=== PATIENT | male | born 1955 | race Caucasian/White ===

== ENCOUNTER → 2018-10-31 | Outpatient (CLI) | payer BC ==
[~2018-10-31] MED LIST: IOPAMIDOL 370 MG/ML 200 ML INFUS..BTL INJ ONE; SODIUM CHLORIDE 0.9% 50ML 50 ML ONE
[2018-10-31 14:51] LABS: BLOOD UREA NITROGEN 15 mg/dL (7-26); BUN/CREATININE RATIO 16 (6-25); CREATININE, SERUM 0.95 mg/dL (0.72-1.25); EST GLOMERULAR FILTRATION RATE > 60 ML/MIN (60-)
--- NOTE | 2018-10-31 18:04 | Diagnostic Imaging Report ---
EXAMINATION: CT of the abdomen and pelvis with contrast. TECHNIQUE: Spiral CT images of the abdomen and pelvis were performed from the lung bases to the lesser trochanters after the intravenous administration of 100 cc of Isovue 370 and the oral administration of dilute Gastrografin. Coronal and sagittal reformatted images were obtained. COMPARISON: None. CLINICAL HISTORY:Left lower quadrant abdominal pain, lower abdominal cramps, suspect diverticulitis DISCUSSION: ABDOMEN/PELVIS: LOWER THORAX:9 mm calcified granuloma in the right lower lobe. Left lower lobe dependent atelectasis. HEPATOBILIARY: Diffusely decreased attenuation of the hepatic parenchyma compared to the spleen, consistent with steatosis. Normal contour and size. No focal lesions. No intra or extrahepatic biliary ductal dilation. GALLBLADDER: Gallbladder is hydropic, measuring 11.2 x 4.2 cm. No radiopaque stones or sludge. No wall thickening. SPLEEN: No splenomegaly. PANCREAS: No focal masses or ductal dilatation. ADRENALS: No nodules. KIDNEYS/URETERS: No hydronephrosis, stones, or solid mass lesions. 2.5 cm fluid density simple cyst in the left inferior pole (series 2, image 32). 1.2 cm fluid density simple cyst in the posterior interpolar left kidney (series 2, image 23). PELVIC ORGANS/BLADDER: Bladder is unremarkable. Prostate is enlarged, measuring approximately 3.8 x 4.4 x 5.1 cm (estimated volume 44 mL). PERITONEUM/RETROPERITONEUM: No free air or fluid. LYMPH NODES: No intra-abdominal, retroperitoneal, pelvic or inguinal lymphadenopathy. VESSELS: The celiac trunk,superior and inferior mesenteric and bilateral renal arteries are patent The portal, superior mesenteric and splenic veins are patent. Atherosclerotic calcification of the distal abdominal aorta and proximal vessels. GI TRACT: No bowel dilation or evidence of obstruction. No pericolonic inflammatory changes. No wall thickening. Minimal diverticulosis of the proximal sigmoid colon without diverticulitis. BONES AND SOFT TISSUE: No aggressive lytic lesions. Multilevel degenerative disc changes in the lower thoracic and lumbosacral spine. Soft tissues are unremarkable. Specifically, no soft tissue masses are noted in the right upper quadrant. Fat-containing umbilical hernia, with neck measuring approximately 3.1 x 2.8 cm, with protrusion of a 2 cm segment of the small bowel (series 2, image 40). No wall thickening, dilation or associated free fluid. IMPRESSION: 1. No acute abdominopelvic abnormalities. Minimal proximal sigmoid diverticulosis, without CT evidence of diverticulitis. 2. Hydropic gallbladder, however, no radiopaque stones or sludge or wall thickening is noted. No CT evidence of cholecystitis. 3. Diffuse hepatic steatosis. 4. Fat and bowel containing umbilical hernia, without evidence of strangulation. 5. Findings discussed with Mackenzie Joseph PA-C October 31, 2018 at 18 00 hours Signed by: Dr. Wyatt Carrillo M.D. on 10/31/2018 6:01 PM
== END ==
LOC: CT 13:54
PROVIDERS: ATTEND Family Medicine
DX: R10.32 Left lower quadrant pain (principal); R19.7 Diarrhea, unspecified; D72.829 Elevated white blood cell count, unspecified
CPT/HCPCS: 36415; 74177; 82565; 84520; Q9967

== ENCOUNTER → 2019-03-15 | Day surgery (SDC) | payer BC ==
[2019-03-13 14:58] LABS: BASOPHILS # (AUTO) 0.1 (0.0-0.1); BASOPHILS % 0.4 % (0.0-1.0); EOSINOPHILS # (AUTO) 0.4 (0.0-0.4); EOSINOPHILS % 3.6 % (0.0-6.0); HEMATOCRIT 44.8 % (38.2-49.6); HEMOGLOBIN 15.1 g/dL (14.0-18.0); LYMPHOCYTES # (AUTO) 3.8 (1.0-3.2); MEAN CORPUSCULAR HEMOGLOBIN 31.3 pg (28-32); MEAN CORPUSCULAR HGB CONC 33.7 g/dL (31-35); MEAN CORPUSCULAR VOLUME 92.8 fL (81-99); MONOCYTES # (AUTO) 0.8 (0.2-0.8); MONOCYTES % 6.9 % (4.4-11.3); NEUTROPHILS # (AUTO) 6.4 (2.1-6.9); NEUTROPHILS % 55.8 % (38.7-80.0); PLATELET COUNT 292 x10e3/uL (140-360); RED BLOOD COUNT 4.83 x10e6/uL (4.3-5.7); RED CELL DISTRIBUTION WIDTH 13.2 % (11.7-14.4)
--- NOTE | 2019-03-13 15:20 | Diagnostic Imaging Report ---
EXAMINATION: CHEST 2 VIEWS INDICATION: Pre-operative COMPARISON: CT abdomen and pelvis of 10/31/2018 FINDINGS: TUBES and LINES: None. LUNGS: The lungs are well-inflated. There is patchy opacity at the right mid to lower lung zone and at the left lung base. PLEURA: No pleural effusion or pneumothorax. HEART AND MEDIASTINUM: The cardiomediastinal silhouette is normal in size and contour. BONES AND SOFT TISSUES: No acute fracture or dislocation. Mild degenerative changes of the visualized spine. UPPER ABDOMEN: No free air under the diaphragm. IMPRESSION: Patchy opacity at the right mid to lower lung zone and to a lesser extent at the left lung base more likely residual subsegmental atelectasis than superimposed aspiration or pneumonia. Signed by: Mary Grace Nair MD on 03/13/2019 3:17 PM
[2019-03-13 15:28] LABS: ANION GAP 11.4 mmol/L (8-16); BLOOD UREA NITROGEN 18 mg/dL (7-26); BUN/CREATININE RATIO 21 (6-25); CALCIUM 9.7 mg/dL (8.4-10.2); CARBON DIOXIDE 28 mmol/L (22-29); CHLORIDE 105 mmol/L (98-107); CREATININE, SERUM 0.85 mg/dL (0.72-1.25); EST GLOMERULAR FILTRATION RATE > 60 ML/MIN (60-); GLUCOSE 103 mg/dL (74-118); POTASSIUM 4.4 mmol/L (3.5-5.1); SODIUM 140 mmol/L (136-145)
[~2019-03-15] MED LIST changes: +AMBIEN10 MG PO; +BUPIVACAINE 0.25% 30ML SDV INJ ONE; +BUPIVACAINE 0.25%/EPI 30ML SDV INJ ONE; +CYMBALTA20 MG PO; +DEXAMETHASONE SOD PHOS INJ 4 MG/ML VIAL ONE; +FENTANYL CITRATE/PF 100MCG/2 ML INJ ONE; +HYDROCODONE/APAP 7.5MG-325MG 1 EA TAB ONE; +HYDROMORPHONE 2MG/ML 2 MG/ML ML ONE; -IOPAMIDOL 370 MG/ML 200 ML INFUS..BTL INJ ONE; +KETOROLAC TROMETHAMINE 30 MG/ML VIAL ONE; +LIDOCAINE HCL 1% LOCAL INJ 20 ML VIAL ONE; +LORTAB PO; +MICARDIS40 MG PO; +MIDAZOLAM HCL 2 MG/2 ML VIAL ONE; +ONDANSETRON HCL INJ 2MG/ML 2ML 2 MG/ML VIAL ONE; +PROPOFOL IV EMULSION 10 MG/ML 20 ML VIAL ONE; +ROCURONIUM BROMIDE 10 MG/ML 5ML VIAL ONE; +SEVOFLURANE INHAL SOLN 250 ML PEN BTL ONE; +SIMVASTATIN20 MG PO; -SODIUM CHLORIDE 0.9% 50ML 50 ML ONE; +SUCCINYLCHOLINE 200 MG/10 ML SYR ONE
--- OUTSIDE RECORDS SUMMARY | 2019-03-15 06:30 | XMS REPORT ---
Author Author [facility] Address Unknown Phone Unavailable Care Team Providers Care Foreclosure Specialist Name Role Phone Davis DARLING Unavailable Unavailable ELMER LEDESMA Unavailable Unavailable Problems This patient has no known problems. Allergies, Adverse Reactions, Alerts This patient has no known allergies or adverse reactions. Medications This patient has no known medications. Results Test Description Test Time Test Comments Text Results Atomic Results Result Comments CHEST 2 VIEWS 2019-03-13 15:15:00 [place] [address] Patient Name: SHANI BECERRIL MR #: [id number] : 1955 Age/Sex: 63/M Req #: [id number] Adm Physician: Ordered by: RENATO DARLING MD Report #: [id number] Location: OR Room/Bed: Procedure: [id number] DX/CHEST 2 VIEWS Exam Date: 03/13/19 Exam Time: 1450 REPORT STATUS: Signed EXAMINATION: CHEST 2 VIEWS INDICATION: Pre-operative COMPARISON: CT abdomen and pelvis of 10/31/2018 FINDINGS: TUBES and LINES: None. LUNGS: The lungs are well-inflated. There is patchy opacity at the right mid to lower lung zone and at the left lung base. PLEURA: No pleural effusion or pneumothorax. HEART AND MEDIASTINUM: The cardiomediastinal silhouette is normal in size and contour. BONES AND SOFT TISSUES: No acute fracture or dislocation. Mild degenerative changes of the visualized spine. UPPER ABDOMEN: No free air under the diaphragm. IMPRESSION: Patchy opacity at the right mid to lower lung zone and to a lesser extent at the left lung base more likely residual subsegmental atelectasis than superimposed aspiration or pneumonia. Signed by: Javon Rodrigez MD on 03/13/2019 3:17 PM Dictated By: JAVON RODRIGEZ MD 16 Transcribed By: ARNIE on 03/13/191516 COPY TO: RENATO DARLING MD CT ABDOMEN/PELVIS W 2018-10-31 17:48:00 [place] [address] Patient Name: SHANI BECERRIL MR #: [id number] : 1955 Age/Sex: 63/M Req #: [id number] Adm Physician: Ordered by: ELMER LEDESMA DO Report #: [id number] Location: CT Room/Bed: Procedure: [id number] CT/CT ABDOMEN/PELVIS W Exam Date: Exam Time: REPORT STATUS: Signed EXAMINATION: CT of the abdomen and pelvis with contrast. TECHNIQ UE: Spiral CT images of the abdomen and pelvis were performed from the lung bases to the lesser trochanters after the intravenous administration of 100 cc of Isovue 370 and the oral administration of dilute Gastrografin. Coronal and sagittal reformatted images were obtained. COMPARISON: None. CLINICAL HISTORY:Left lower quadrant abdominal pain, lower abdominal cramps, suspect diverticulitis DISCUSSION: ABDOMEN/PELVIS: LOWER THORAX:9 mm calcified granuloma in the right lower lobe. Left lower lobe dependent atelectasis. HEPATOBILIARY: Diffusely decreased attenuation of the hepatic parenchyma compared to the spleen, consistent with steatosis. Normal contour and size. No focal lesions. No intra or extrahepatic biliary ductal dilation. GALLBLADDER: Gallbladder is hydropic, measuring 11.2 x 4.2 cm. No radiopaque stones or sludge. No wall thickening. SPLEEN: No splenomegaly. PANCREAS: No focal masses or ductal dilatation. ADR ENALS: No nodules. KIDNEYS/URETERS: No hydronephrosis, stones, or solid mass lesions. 2.5 cm fluid density simple cyst in the left inferior pole (series 2, image 32). 1.2 cm fluid density simple cyst in the posterior interpolar left kidney (series 2, image 23). PELVIC ORGANS/BLADDER: Bladder is unremarkable. Prostate is enlarged, measuring approximately 3.8 x 4.4 x 5.1 cm (estimated volume 44 mL). PERITONEUM/RETROPERITONEUM: No free air or fluid. LYMPH NODES: No intra-abdominal, retroperitoneal, pelvic or inguinal lymphadenopathy. VESSELS: The celiac trunk,superior and inferior mesenteric and bilateral renal arteries are patent The portal, superior mesenteric and splenic veins are patent. Atherosclerotic calcification of the distal abdominal aorta and proximal vessels. GI TRACT: No bowel dilation or evidence of obstruction. No pericolonic inflammatory changes. No wall thickening. Minimal diverticulosis of the proximal sigmoid colon without dive rticulitis. BONES AND SOFT TISSUE: No aggressive lytic lesions. Multilevel degenerative disc changes in the lower thoracic and lumbosacral spine. Soft tissues are unremarkable. Specifically, no soft tissue masses are noted in the right upper quadrant. Fat-containing umbilical hernia, with neck measuring approximately 3.1 x 2.8 cm, with protrusion of a 2 cm segment of the small bowel (series 2, image 40). No wall thickening, dilation or associated free fluid. IMPRESSION: 1. No acute abdominopelvic abnormalities. Minimal proximal sigmoid diverticulosis, without CT evidence of diverticulitis. 2. Hydropic gallbladder, however, no radiopaque stones or sludge or wall thickening is noted. No CT evidence of cholecystitis. 3. Diffuse hepatic steatosis. 4. Fat and bowel containing umbilical hernia, without evidence of strangulation. 5. Findings discussed with Mackenzie Joseph PA-C October 31, 2018 at 18 00 hours Signed by: Dr. Fallon Carrillo M.D. on 10/31/2018 6:01 PM Dictated By: FALLON CARRILLO MD 00 Transcribed By: ARNIE on 10/31/181800 COPY TO: ELMER LEDESMA DO
--- OUTSIDE RECORDS SUMMARY | 2019-03-15 06:30 | XMS REPORT | Clinical Summary ---
Author Author [facility] Address Unknown Phone Unavailable Care Team Providers Care Multimedia Artist Name Role Phone Lalito Oliva DO PCP Allergies No Known Allergies Medications End Date Status Medication Sig Dispensed Refills Start Date 06/10/2018 dicyclomine (BENTYL) 20 Take 1 tablet 60 tablet 0 201 mg tablet (20 mg total) 8 by mouth 2 (two) times a day for 30 days. 06/10/2018 ondansetron (ZOFRAN) 4 MG Take 1 tablet 20 tablet 0 tablet (4 mg total) 8 by mouth every 8 (eight) hours as needed for nausea or vomiting for up to 30 days. Active Problems Not on file Encounters Care Team Description Date Type Specialty Trev Preciado DO Viral gastroenteritis (Primary Dx) 05/10/2018 Emergency Emergency Medicine - 05/11/2018 after 03/14/2018 Social History Date Tobacco Use Types Packs/Day Years Used Never Assessed Sex Assigned at Date Recorded Not on file Industry Job Start Date Occupation Not on file Not on file Not on file Travel End Travel History Travel Start No recent travel history available. Last Filed Vital Signs Time Taken Vital Sign Reading 05/11/2018 2:00 AM CDT Blood Pressure 133/83 05/11/2018 2:00 AM CDT Pulse 72 05/11/2018 1:00 AM CDT Temperature 36.6 C (97.9 F) 05/11/2018 2:00 AM CDT Respiratory Rate 20 05/11/2018 2:00 AM CDT Oxygen Saturation 96% - Inhaled Oxygen - Concentration 05/10/2018 10:02 PM CDT Weight 89 kg (196 lb 4.8 oz) 05/10/2018 10:02 PM CDT Height 177.8 cm (5' 10") 05/10/2018 10:02 PM CDT Body Mass Index 28.17 Plan of Treatment Health Maintenance Due Date Last Done Comments COLONOSCOPY SCREENING 2003 SHINGLES VACCINES (#1) 2003 65+ PNEUMOCOCCAL VACCINE 2018 (1 of 2 - PCV13) INFLUENZA VACCINE 03/23/2019 Procedures Comments Procedure Name Priority Date/Time Associated Diagnosis CT ABDOMEN PELVIS W STAT 05/11/2018 CONTRAST 12:30 AM CDT ESTIMATED GFR STAT 05/10/2018 10:44 PM CDT LIPASE LEVEL STAT 05/10/2018 10:44 PM CDT COMPREHENSIVE METABOLIC STAT 05/10/2018 PANEL 10:44 PM CDT HC COMPLETE BLD COUNT STAT 05/10/2018 W/AUTO DIFF 10:44 PM CDT ECG 12-LEAD Routine 05/10/2018 10:12 PM CDT after 03/14/2018 Results * CT Abdomen Pelvis W Contrast (05/11/2018 12:30 AM CDT) Specimen Narrative Performed At Examination:CT ABDOMEN PELVIS W CONTRAST [facility] Clinical History: Abd paingastroenteritis or colitis suspected Comparison: None. Findings: CT scans are performed using radiation dose reduction techniques.Technical factors are evaluated and adjusted to ensure appropriate moderation of exposure.Automated dose management technology is applied to adjust radiation exposure while achieving a diagnostic quality image. CT scan of the abdomen and pelvis was performed after intravenous contrast. The liver, spleen, pancreas, gallbladder, and adrenal glands are unremarkable. There is a left renal cyst noted measuring 2.4 cm. Right kidney is unremarkable. No hydronephrosis is seen. The appendix is not visualized. No bowel thickening or fat stranding is seen. No bowel dilatation is seen. No free air or fluid is seen. Urinary bladder is unremarkable. There are size lung bases are clear. IMPRESSION: 1. No acute abnormality identified in abdomen or pelvis. [facility]-[id number] Procedure Note Interface, Radiology Results Incoming - 05/11/2018 12:43 AM CDT Examination: CT ABDOMEN PELVIS W CONTRAST Clinical History: Abd pain gastroenteritis or colitis suspected Comparison: None. Findings: CT scans are performed using radiation dose reduction techniques. Technical factors are evaluated and adjusted to ensure appropriate moderation of exposure. Automated dose management technology is applied to adjust radiation exposure while achieving a diagnostic quality image. CT scan of the abdomen and pelvis was performed after intravenous contrast. The liver, spleen, pancreas, gallbladder, and adrenal glands are unremarkable. There is a left renal cyst noted measuring 2.4 cm. Right kidney is unremarkable. No hydronephrosis is seen. The appendix is not visualized. No bowel thickening or fat stranding is seen. No bowel dilatation is seen. No free air or fluid is seen. Urinary bladder is unremarkable. There are size lung bases are clear. IMPRESSION: 1. No acute abnormality identified in abdomen or pelvis. [facility]-[id number] Performing Organization Address City/[facility]/Zipcode Phone Number [facility] [address] [place] [address] * Estimated GFR (05/10/2018 10:44 PM CDT) Pathologist [facility] Estimated GFR 79 mL/min/1.73 m2 [facility] Comment: DEPART[facility] AND banner GENOMIC MEDICINE >=90 Normal or high G2 60-89Mildly decreased P6p77-91 Mildly to moderately decreased U9p30-64 Moderately to severely decreased G4 15-29Severely decreased G5 <15Kidney failure The eGFR was calculated using the Chronic Kidney Disease Epidemiology Collaboration (CKD-EPI) equation. Interpretation is based on recommendations of the National Kidney Foundation-Kidney Disease Outcomes Quality Initiative (NKF-KDOQI) published in 2014. Specimen Plasma specimen Performing Organization Address City/[facility]/Zipcode Phone Number [facility] DEPARTMENT [address] [place] [address] PATHOLOGY AND GENOMIC MEDICINE * CBC with platelet and differential (05/10/2018 10:44 PM CDT) Pathologist [facility] WBC 16.11 (H) 4.50 - 11.00 k/uL [facility] DEPARTMENT OF PATHOLOGY AND GENOMIC MEDICINE RBC 5.10 4.40 - 6.00 m/uL [facility] DEPARTMENT OF PATHOLOGY AND GENOMIC MEDICINE HGB 16.0 14.0 - 18.0 g/dL [facility] DEPARTMENT OF PATHOLOGY AND GENOMIC MEDICINE HCT 46.6 41.0 - 51.0 % [facility] DEPARTMENT OF PATHOLOGY AND GENOMIC MEDICINE MCV 91.4 82.0 - 100.0 fL [facility] DEPARTMENT OF PATHOLOGY AND GENOMIC MEDICINE MCH 31.4 27.0 - 34.0 pg [facility] DEPARTMENT OF PATHOLOGY AND GENOMIC MEDICINE MCHC 34.3 31.0 - 37.0 g/dL [facility] DEPARTMENT OF PATHOLOGY AND GENOMIC MEDICINE RDW - SD 44.0 37.0 - 55.0 [facility] DEPARTMENT OF PATHOLOGY AND GENOMIC MEDICINE MPV 9.3 8.8 - 13.2 fL [facility] DEPARTMENT OF PATHOLOGY AND GENOMIC MEDICINE Platelet count 273 150 - 400 k/uL [facility] DEPARTMENT OF PATHOLOGY AND GENOMIC MEDICINE Nucleated RBC 0.00 /100 WBC [facility] DEPARTMENT OF PATHOLOGY AND GENOMIC MEDICINE Neutrophils 69.7 (H) 39.0 - 69.0 % [facility] DEPARTMENT OF PATHOLOGY AND GENOMIC MEDICINE Lymphocytes 19.8 (L) 25.0 - 45.0 % [facility] DEPARTMENT OF PATHOLOGY AND GENOMIC MEDICINE Monocytes 6.7 0.0 - 10.0 % [facility] DEPARTMENT OF PATHOLOGY AND GENOMIC MEDICINE Eosinophils 2.9 0.0 - 5.0 % [facility] DEPARTMENT OF PATHOLOGY AND GENOMIC MEDICINE Basophils 0.5 0.0 - 1.0 % [facility] DEPARTMENT OF PATHOLOGY AND GENOMIC MEDICINE Specimen Blood Performing Organization Address City/[facility]/Zipcode Phone Number [address] [place] [address] PATHOLOGY [facility] * Lipase level (05/10/2018 10:44 PM CDT) Lipase 18 13 - 60 U/L [facility] DEPARTMENT OF PATHOLOGY AND GENOMIC MEDICINE Specimen Plasma specimen Performing Organization Address City/[facility]/Zipcode Phone Number [address] [place] [address] PATHOLOGY [facility] * Comprehensive metabolic panel (05/10/2018 10:44 PM CDT) Sodium 138 135 - 148 mEq/L [facility] DEPARTMENT OF PATHOLOGY AND GENOMIC MEDICINE Potassium 3.8 3.5 - 5.0 mEq/L [facility] DEPARTMENT OF PATHOLOGY AND GENOMIC MEDICINE Chloride 96 (L) 98 - 112 mEq/L [facility] DEPARTMENT OF PATHOLOGY AND GENOMIC MEDICINE CO2 27 24 - 31 mEq/L [facility] DEPARTMENT OF PATHOLOGY AND GENOMIC MEDICINE Anion gap 15@ANIO 7 - 15 mEq/L [facility] DEPARTMENT OF PATHOLOGY AND GENOMIC MEDICINE BUN 18 8 - 23 mg/dL [facility] DEPARTMENT OF PATHOLOGY AND GENOMIC MEDICINE Creatinine 1.00 0.70 - 1.20 mg/dL [facility] DEPARTMENT OF PATHOLOGY AND GENOMIC MEDICINE Glucose 128 (H) 65 - 99 mg/dL [facility] DEPARTMENT OF PATHOLOGY AND GENOMIC MEDICINE Calcium 10.3 (H) 8.8 - 10.2 mg/dL [facility] DEPARTMENT OF PATHOLOGY AND GENOMIC MEDICINE Protein 7.8 6.3 - 8.3 g/dL [facility] Comment: DEPARTMENT OF [place] PATHOLOGY AND 4.6-7.0 g/dL [place] [id number] MEDICINE week 4.4-7.6 g/dL 7 months-1year 5.1-7.3 g/dL 1-2 years5.6-7 .5 g/dL >3 years6.0-8 .0 g/dL 18-150 6.3-8.3 g/dL Albumin 4.4Comment: down time 3.5 - 5.0 g/dL [facility] DEPARTMENT OF PATHOLOGY AND GENOMIC MEDICINE A/G ratio 1.3 0.7 - 3.8 [facility] DEPARTMENT OF PATHOLOGY AND GENOMIC MEDICINE Alkaline 101 40 - 129 U/L [facility] phosphatase DEPARTMENT OF PATHOLOGY AND GENOMIC MEDICINE AST 20 10 - 50 U/L [facility] DEPARTMENT OF PATHOLOGY AND GENOMIC MEDICINE ALT 17 5 - 50 U/L [facility] DEPARTMENT OF PATHOLOGY AND GENOMIC MEDICINE Total bilirubin 0.4 0.0 - 1.2 mg/dL [facility] DEPARTMENT OF PATHOLOGY AND GENOMIC MEDICINE Specimen Plasma specimen Performing Organization Address City/[facility] Phone Number [address] [place] [address] PATHOLOGY AND GENOMIC MEDICINE * ECG 12 lead (05/10/2018 10:12 PM CDT) Ventricular 70 [facility] rate Atrial rate 70 [facility] MD interval 172 [facility] QRSD interval 84 [facility] QT interval 394 [facility] QTC interval 425 [facility] P axis 1 63 [facility] QRS axis 1 68 [facility] T wave axis 59 [facility] MUSE EKG impression Normal sinus rhythm-Normal [facility] MUSE ECG-In automated comparison with ECG of 02-APR-2009 04:28,-No significant change was found- Specimen Performing Organization Address City/[facility] Phone Number [facility] MUSE [address] [place] [address] after 03/14/2018 Insurance Type Payer Benefit Subscriber ID Effective Phone Address Plan / Dates Group Exchange BCBS EXCHANGE BLUE xxxxxxxxxxxx [id number] ADVANTAGE resent HMO EXCH Advance Directives Patient has advance care planning documents on file. For more information, meri mcfadden contact: Gregorio Singh [address] [place] [address]
[2019-03-15 11:05] VITALS: BP 110/73
--- NOTE | 2019-03-15 13:18 | Operative Report ---
DATE OF PROCEDURE: 03/15/2019 SURGEON: Franklin Hess MD PREOPERATIVE DIAGNOSIS: Suture granulomas of the abdominal wall. POSTOPERATIVE DIAGNOSIS: Suture granulomas of the abdominal wall. OPERATION PERFORMED: Exploration of abdominal wall with resection of suture granulomas. BOX FABRICATOR: DEBBIE Begum ANESTHESIA: General. COMPLICATIONS: None. ESTIMATED BLOOD LOSS: Was minimal. PROCEDURE IN DETAIL: With the patient lying in bed in the supine position under good general anesthesia, the abdomen was prepped with Betadine solution and draped in the usual manner. Skin on the right side of the abdomen and the lower portion of the incision was then identified. An elliptical incision was made around it and the sinus tract was then followed all the way down to the fascia. The fascia was then opened and immediately a pocket was encountered. There were two sutures that appeared to be consistent with either Ethibond or Mersilene type sutures and both of these were the sutures that were feeding the granuloma. Both of these sutures were removed in their entirety. After this was done, the whole area around it was debrided. All of the mesh was well incorporated. The whole area around the sutures was then totally and completely debrided and after this was done, the area was lavaged with dilute Betadine solution. Perfect hemostasis was ascertained. All layers were infiltrated on the way out with solution of 0.25% Marcaine. The fascia was approximated with interrupted 2-0 Vicryl suture and the skin was loosely approximated with a single suture of 2-0 nylon and the wound was then packed with iodoform gauze. A dressing was applied. The sponge, lap, and needle count was correct. The patient tolerated the procedure well and returned to the recovery room in stable condition. Franklin Hess MD JLR/MODL /[id number]
== END | disposition home or self-care (01) ==
LOC: OR 06:27
PROVIDERS: ATTEND Surgery
DX: M60.28 Foreign body granuloma of soft tissue, not elsewhere classified, other site (principal); Z18.89 Other specified retained foreign body fragments; I10 Essential (primary) hypertension; F17.200 Nicotine dependence, unspecified, uncomplicated; Z01.810 Encounter for preprocedural cardiovascular examination; Z01.812 Encounter for preprocedural laboratory examination; Z01.818 Encounter for other preprocedural examination
CPT/HCPCS: 20525; 36415; 71046; 80048; 85025; 88304; 93005; J1100; J1170; J1885; J2250; J2405; J2704; J3010; J2001

== ENCOUNTER → 2020-06-06 | Outpatient (CLI) | payer MEDICARE, OTHER ==
[~2020-06-06] MED LIST changes: -BUPIVACAINE 0.25% 30ML SDV INJ ONE; -BUPIVACAINE 0.25%/EPI 30ML SDV INJ ONE; -DEXAMETHASONE SOD PHOS INJ 4 MG/ML VIAL ONE; -FENTANYL CITRATE/PF 100MCG/2 ML INJ ONE; -HYDROCODONE/APAP 7.5MG-325MG 1 EA TAB ONE; -HYDROMORPHONE 2MG/ML 2 MG/ML ML ONE; -KETOROLAC TROMETHAMINE 30 MG/ML VIAL ONE; -LIDOCAINE HCL 1% LOCAL INJ 20 ML VIAL ONE; -MIDAZOLAM HCL 2 MG/2 ML VIAL ONE; -ONDANSETRON HCL INJ 2MG/ML 2ML 2 MG/ML VIAL ONE; -PROPOFOL IV EMULSION 10 MG/ML 20 ML VIAL ONE; -ROCURONIUM BROMIDE 10 MG/ML 5ML VIAL ONE; -SEVOFLURANE INHAL SOLN 250 ML PEN BTL ONE; -SUCCINYLCHOLINE 200 MG/10 ML SYR ONE
--- NOTE | 2020-06-06 08:20 | Diagnostic Imaging Report ---
CT BRAIN WO HISTORY: Headache COMPARISON: None. TECHNIQUE: Noncontrast axial scans were obtained from skull base to the vertex. Coronal and sagittal reconstructions obtained from the axial data. One or more of the following dose reduction techniques were used: Automated exposure control, adjustment of the mA and/or kV according to patient size, and/or utilization of iterative reconstruction technique. DISCUSSION: Scalp/Skull: Unremarkable. Brain sulci: Mildly prominent. Ventricles: Mild compensatory dilatation. Extra-axial spaces: No masses or fluid collections. Mild carotid siphon calcifications. Parenchyma: No abnormal densities. No mass, hemorrhage, or large vascular territory acute infarct. Dural sinuses: No abnormal densities. Sellar/Suprasellar region: Intact. Skull base: Intact. Incidental findings: Mild left maxillary sinus opacification is partially imaged. IMPRESSION: 1. No acute intracranial abnormalities. 2. Mild generalized cerebral volume loss. Signed by: Dr. Ralph Walker M.D. on 06/06/2020 8:16 AM
== END ==
LOC: CT 07:27
PROVIDERS: ATTEND Family Medicine
DX: R51.9 Headache, unspecified (principal)
CPT/HCPCS: 70450

== ENCOUNTER → 2022-10-15 | Day surgery (SDC) | payer MEDICARE, OTHER ==
[2022-10-13 08:45] LABS: BASOPHILS # (AUTO) 0.1 (0.0-0.1); BASOPHILS % 0.4 % (0.0-1.0); EOSINOPHILS # (AUTO) 0.2 (0.0-0.4); HEMATOCRIT 42.2 % (38.2-49.6); HEMOGLOBIN 13.9 g/dL (14.0-18.0); LYMPHOCYTES # (AUTO) 2.9 (1.0-3.2); LYMPHOCYTES % 25.6 % (18.0-39.1); MEAN CORPUSCULAR HEMOGLOBIN 31.4 pg (28-32); MEAN CORPUSCULAR HGB CONC 32.9 g/dL (31-35); MEAN CORPUSCULAR VOLUME 95.5 fL (81-99); MONOCYTES # (AUTO) 0.8 (0.2-0.8); MONOCYTES % 6.6 % (4.4-11.3); NEUTROPHILS # (AUTO) 7.4 (2.1-6.9); PLATELET COUNT 254 x10e3/uL (140-360); RED BLOOD COUNT 4.42 x10e6/uL (4.3-5.7); RED CELL DISTRIBUTION WIDTH 13.2 % (11.7-14.4)
[~2022-10-15] MED LIST changes: +ASPIRIN81 MG PO; +GLIMEPIRIDE2 MG PO; +GLUCAGON FOR INJ 1 MG VIAL ONE; +LIDOCAINE HCL 2% LOCAL INJ 5 ML SDV VIAL INJ ONE; +LIPITOR10 MG PO; +LOSARTAN-HCTZ1 EAC1 PO; +METFORMIN HCL500 MG PO; +METOPROLOL SUCC25 MG PO; +OXYCODONE-ACET500 ML; +PROPOFOL IV EMULSION 10 MG/ML 20 ML VIAL ONE; +SODIUM CHLORIDE 0.9% 100 ML ONE; +XTAMPZA ER9 MG PO
[2022-10-15 09:38] VITALS: BP 103/74
== END | disposition home or self-care (01) ==
LOC: OR 05:54
PROVIDERS: ATTEND Internal Medicine Gastroenterology
DX: K29.50 Unspecified chronic gastritis without bleeding (principal); D12.3 Benign neoplasm of transverse colon; K20.90 Esophagitis, unspecified without bleeding; K59.00 Constipation, unspecified; K64.8 Other hemorrhoids; I82.493 Acute embolism and thrombosis of other specified deep vein of lower extremity, bilateral; I25.118 Atherosclerotic heart disease of native coronary artery with other forms of angina pectoris; E11.59 Type 2 diabetes mellitus with other circulatory complications; I10 Essential (primary) hypertension; R07.9 Chest pain, unspecified; I73.9 Peripheral vascular disease, unspecified; I65.23 Occlusion and stenosis of bilateral carotid arteries; E78.00 Pure hypercholesterolemia, unspecified; F17.200 Nicotine dependence, unspecified, uncomplicated; Z01.810 Encounter for preprocedural cardiovascular examination; Z01.812 Encounter for preprocedural laboratory examination; Z79.82 Long term (current) use of aspirin; Z79.84 Long term (current) use of oral hypoglycemic drugs; Z79.899 Other long term (current) drug therapy
CPT/HCPCS: 36415 ×2; 43239; 45380; 45385; 82948; 85025; 88305; 88342; 93005; C9113; J1610; J2001; J2704; J7050; 45378; 88304; 88312